=== PATIENT | female | born 1980 | race Caucasian/White ===

== ENCOUNTER 2016-08-24 07:40 | Day surgery (SDC) | payer MEDICARE, OTHER ==
[~2016-08-24 07:40] MED LIST: ACETSUP650 PR; ATV1 PO; BACTROCR TOP; BACTRONASA NAS; BISR PR; CALTRAT600 PO; CONSTULOSE PO; DEPO-PROVER150 MG/ML IM; DIASTAT10 PR; DUONEB INH; EMETROL LIQ.1 ML PO/LIQ; EMETROL PO; FLEET MINERL PR; FLONASE NAS; FOLIC PO; GENERLAC PO; HEMOCYTE324 MG PO; KEPPRA1000 MG PO; KEPPRA500 PO; LACT30UDL PO; LOTRIMIN AF12 EX; MINERAL OIL; MOMUD PO; MUCINEX600 MG PO; MYLANTA PO; MYLUD PO; NEO-OINT15 T; NEOSPORIN OINT30 GM T; NUCALA IM; P20 PO; PB15 PO; PB30 PO; PERFOROM INH; PHENOBARBITAL PO; PRILO PO; PRILOSEC40 MG PO; PULRESP.5 INH; SENTAB PO; SINGULAIR1 PO; T PO; TEG200 PO; TINACTIN11 EX; TUSSIN DM1 M1 OR; VIMPAT200 MG PO; VITE PO; ZOCOR40 PO; ZOFRAN8 PO; ZOVIRAX400 MG PO; ZYRTEC ALLGY10 MG PO; [UNRECOGNIZED DRUG - OTHER] OT
== END 2016-08-24 23:59 | disposition home or self-care (01) ==
LOC: DMU 07:40
DX: E78.00 Pure hypercholesterolemia, unspecified (principal); J44.9 Chronic obstructive pulmonary disease, unspecified; J45.909 Unspecified asthma, uncomplicated; M85.80 Other specified disorders of bone density and structure, unspecified site; K21.9 Gastro-esophageal reflux disease without esophagitis; D64.9 Anemia, unspecified; Z53.8 Procedure and treatment not carried out for other reasons; Z86.69 Personal history of other diseases of the nervous system and sense organs
CPT/HCPCS: 84703; A9270-GY; C9254; J1953

== ENCOUNTER 2016-09-28 10:00 | Day surgery (SDC) | payer MEDICARE, OTHER ==
--- NOTE | ~2016-09-28 | EGD ---
EGD REPORT [facility] [address] [address] NAME: GREG DELGADILLO : [birth year] STATUS : REG [facility]#: [id number] AGE: 36 ADM/REG DATE : 09/28/16 MR#: [id number] REPORT SERV DATE: 09/28/16 DICTATED BY: FARIBA HWANG DATE: 09/28/16 REPORT STATUS : Draft [facility]ANS[facility]IBED BY: [facility] DATE: 09/28/16 Endoscopy Center Patient Name: Greg Delgadillo Date of : 1980 Attending MD: FARIBA HWANG MD Procedure Date No Time: 09/28/2016 Procedure: Upper GI endoscopy Indications: Follow-up of Ha's esophagus Referring MD: Fred LEAVITT Medicines: Propofol per Anesthesia Complications: No immediate complications. Procedure: Pre-Anesthesia Assessment: - ASA Grade Assessment: III - A patient with severe systemic disease. After obtaining informed consent, the endoscope was passed under direct vision. Throughout the procedure, the patient's blood pressure, pulse, and oxygen saturations were monitored continuously. The GIF [id number] was introduced through the mouth, and advanced to the third part of duodenum. The upper GI endoscopy was accomplished without difficulty. The patient tolerated the procedure well. Findings: Non-severe esophagitis with no bleeding was found in the entire esophagus. There were esophageal mucosal changes secondary to established short-segment Ha's disease present in the lower third of the esophagus. The maximum longitudinal extent of these mucosal changes was 2 cm in length. Mucosa was biopsied with a cold forceps for histology in 4 quadrants at intervals of 1 cm in the lower third of the esophagus. One specimen bottle was sent to pathology. A large hiatus hernia was present. A large hiatus hernia was present. as seen on retroflexion Diffuse mild inflammation characterized by congestion (edema) and erythema was found in the entire examined stomach. Localized mild inflammation characterized by congestion (edema) and erythema was found in the duodenal bulb. The 2nd part of the duodenum and 3rd part of the duodenum were normal. Impression: - Non-severe esophagitis. - Esophageal mucosal changes secondary to established short-segment Ha's disease. Biopsied. - Hiatus hernia. - Hiatus hernia. EGD REPORT [address] [address] NAME: GREG DELGADILLO : [birth year] STATUS : [place] [facility] [place]#: [id number] AGE: 36 ADM/REG DATE : 09/28/16 MR#: [id number] REPORT SERV DATE: 09/28/16 DICTATED BY: FARIBA HWANG DATE: 09/28/16 REPORT STATUS : Draft TRANSCRIBED BY: [employer] DATE: 09/28/16 - Gastritis. - Duodenitis. - Normal 2nd part of the duodenum and 3rd part of the duodenum. Recommendation: - Patient has a contact number available for emergencies. The signs and symptoms of potential delayed complications were discussed with the patient. Return to normal activities tomorrow. Written discharge instructions were provided to the patient. - Return to previous diet. - Continue present medications. - Await pathology results. - Repeat the upper endoscopy in 1 to 3 years depending on pathology for surveillance. - Return to my office as previously scheduled. - Discharge patient to home. Procedure Code(s): --- Professional --- 17655, Esophagogastroduodenoscopy, flexible, transoral; with biopsy, single or multiple Diagnosis Code(s): --- Professional --- K20.9, Esophagitis, unspecified K22.70, Ha's esophagus without dysplasia K44.9, Diaphragmatic hernia without obstruction or gangrene K29.70, Gastritis, unspecified, without bleeding K29.80, Duodenitis without bleeding CPT copyright 2013 [employer]. All rights reserved. The codes documented in this report are preliminary and upon press room supervisor review may be revised to meet current compliance requirements. Fariba Hwang MD FARIBA HWANG MD 09/28/2016 2:36 PM This report has been signed electronically. Number of Addenda: 0 Note Initiated On: 09/28/2016 2:09 PM Scope Withdrawal Time 0 hours 0 minutes 0 seconds [id number] [place] [id number]
== END 2016-09-28 23:59 | disposition home health service (06) ==
LOC: DMU 10:00
PROVIDERS: Internal Medicine Gastroenterology
PROC: 0DB38ZX Excision of Lower Esophagus, Via Natural or Artificial Opening Endoscopic, Diagnostic (ICD-10-PCS; principal; 2016-09-28 11:30)
DX: K21.0 Gastro-esophageal reflux disease with esophagitis (principal); K22.70 Barrett's esophagus without dysplasia; K44.9 Diaphragmatic hernia without obstruction or gangrene; K29.70 Gastritis, unspecified, without bleeding; K29.80 Duodenitis without bleeding; R56.9 Unspecified convulsions; J44.9 Chronic obstructive pulmonary disease, unspecified; E78.00 Pure hypercholesterolemia, unspecified; J45.909 Unspecified asthma, uncomplicated; M85.80 Other specified disorders of bone density and structure, unspecified site; D64.9 Anemia, unspecified; Z88.8 Allergy status to other drugs, medicaments and biological substances
CPT/HCPCS: 84703; 88305; 94640